=== PATIENT | male | born 1945 | race Caucasian/White ===

== ENCOUNTER → 2017-01-29 | Outpatient (CLI) | payer OTHER ==
[~2017-01-29] MED LIST: ACTOS PLUS MET PO; ACTOS PO; AMARYL PO; ASPIRIN PO; ATENOLOL PO; ATENOLOL50 MG PO; ATORVASTATIN CA80 MG PO; CRESTOR PO; EFFEXOR PO; FLEXERIL PO; FUROSEMIDE40 MG PO; GLIMEPIRIDE2 MG PO; GLUCOPHAGE XR500 MG PO; HCTZ PO; LANTUS SOLOSTAR3 ML SUBQ; LANTUS100 U/ML INJ; LIPITOR; LISINOPRIL PO; LORTAB 5/500 TA1 TA2 PO; ONGLYZA5 MG PO; PIOGLITAZONE HC30 MG PO; VICODIN 5/500 T1 TAB PO
--- NOTE | ~2017-01-29 | CR141 ---
[facility] A Service of [facility] & [facility] RADIOLOGY TEXT RESULTS PATIENT: MADISYN LEDEZMA LOCATION: [facility] : 47 UNIT #: [id number] AGE: [address]: Darrell Monet MD SEX: M ORDER DR: [id number] [facility] [address] [place], [place] [address] [id number] O MR#: [id number] Acc #: [id number] NAME: MADISYN LEDEZMA : 1945 SEX: M STUDY DATE/TIME: 01/29/2017 14:50 UNIT: [facility] ROOM: STUDY DESCRIPTION: CR Hand Min 3 Views Lt Attending Physician: Darrell Monet M.D. Referring Physician: Darrell Monet M.D. Ordering Physician: Darrell Monet M.D. Primary Care Physician: Darrell Monet M.D. MEDICAL IMAGING REPORT This report is preliminary unless electronic signature is present EXAMINATION Three views, left hand, 01/29/2017. HISTORY 71-year-old male with arthritis. Bilateral hand pain for 3-4 months. Unable to bend third and fourth digits all the way. COMPARISON None FINDINGS No fracture or joint dislocation. Mild to moderate osteoarthritic type changes are demonstrated, predominately in the proximal and distal interphalangeal joints, greatest in the third and fourth DIP joints and the third through fifth PIP joints. No marginal erosions, subchondral cystic changes or periostitis changes are evident. No retained radiopaque foreign body. 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 No acute findings. Dictated by... Zaida Reinoso M.D. THIS IS AN ELECTRONICALLY VERIFIED REPORT Zaida Reinoso M.D. at 02/02/2017 8:49 AM DOUG/andreia TD: 01/30/2017 17:38 JOB #: [id number] [facility] A Service of [facility] & [facility] RADIOLOGY TEXT RESULTS PATIENT: MADIYSN LEDEZMA LOCATION: [facility] #: [id number] : 47 UNIT #: [id number] AGE: [address]: Darrell Monet MD SEX: M ORDER DR: MEDICAL IMAGING REPORT Page 1 of 1 COPY
--- NOTE | ~2017-01-29 | CR142 ---
[facility] A Service of [facility] & [facility] RADIOLOGY TEXT RESULTS PATIENT: MADISYN LEDEZMA LOCATION: [facility] : 47 UNIT #: [id number] AGE: [address]: Darrell Monet MD SEX: M ORDER DR: [id number] [place] [facility]. [place], [place] [address] [id number] O MR#: [id number] Acc #: [id number] NAME: MADISYN LEDEZMA : 1945 SEX: M STUDY DATE/TIME: 01/29/2017 14:49 UNIT: [facility] ROOM: STUDY DESCRIPTION: CR Hand Min 3 Views Rt Attending Physician: Darrell Monet M.D. Referring Physician: Darrell Monet M.D. Ordering Physician: Darrell Monet M.D. Primary Care Physician: Darrell Monet M.D. MEDICAL IMAGING REPORT This report is preliminary unless electronic signature is present EXAMINATION Three views, right hand. DATE 01/29/2017 HISTORY 71-year-old male with arthritis. Bilateral hand pain for 3 months, unable to bend third and fourth digits all the way. COMPARISON None. FINDINGS No fracture or joint dislocation is seen. There is foyc-lf-dapeloal osteoarthritic type changes in the proximal distal interphalangeal joints, greatest in the third through fifth PIP joints and the third DIP joint. No marginal erosions or periostitis or subchondral cystic changes are identified. Benign vascular calcifications are seen within the wrist IMPRESSION 1. Mild to moderate osteoarthritic changes of the right hand, greatest in the third and fourth digits as described. No acute findings. Dictated by... Zaida Reinoso M.D. THIS IS AN ELECTRONICALLY VERIFIED REPORT Zaida Reinoso M.D. at 02/02/2017 8:49 AM DOUG/andreia TD: 01/30/2017 17:24 [facility] A Service of [facility] RADIOLOGY TEXT RESULTS PATIENT: MADISYN LEDEZMA LOCATION: [facility] #: [id number] : 47 UNIT #: [id number] AGE: [address]: Darrell Monet MD SEX: M ORDER DR: JOB #: [id number] MEDICAL IMAGING REPORT Page 1 of 1 COPY
== END | disposition home or self-care (01) ==
LOC: CRAD 14:34
DX: M19.042 Primary osteoarthritis, left hand (principal); M19.041 Primary osteoarthritis, right hand
CPT/HCPCS: 73130